=== PATIENT | male | born 2005 | race Caucasian/White ===

== ENCOUNTER 2024-10-22 06:03 | Day surgery (SDC) | payer OTHER, SELFPAY ==
[2024-10-22] VITALS (14 sets, daily range): BP systolic 115–147; BP diastolic 62–75; BMI 31.3; BMI 30.9
--- NOTE | 2024-10-22 03:13 | ED.GENMED ---
History of Present Illness
General
Chief Complaint: Abdominal Pain
Source: patient and family
Exam Limitations: none
Time Seen by Provider: 10/22/24 03:07
Nursing documentation reviewed up to this point in time: agreed with
History of Present Illness
History of Present Illness:
Pleasant 19-year-old male that presents with right upper quadrant abdominal pain. Patient had stomach bug on Sunday with nausea, and vomiting. Symptoms have waxed and waned since then. Tonight he had a normal-richard meal. Shortly thereafter he
developed severe right upper quadrant abdominal pain. Denies fever but does report chills. States that the pain is in the right upper quadrant and radiates to the right shoulder.
Review of Systems
Review of Systems
Allergies reviewed?: Yes
Other source history: family (Father)
All Other Systems: ROS reviewed and negative except as documented in HPI and ROS
Constitutional: Reports no symptoms
EENT: Reports no symptoms
Respiratory: Reports no symptoms
Cardiac: Reports no symptoms
ABD/GI: Reports abdominal pain and nausea
: Reports no symptoms
Musculoskeletal: Reports no symptoms
Skin: Reports no symptoms
Neurological: Reports no symptoms
Endocrine: Reports no symptoms
Hematologic/Lymphatic: Reports no symptoms
Psychiatric: Reports anxiety
Phy Exam
General Physical Exam
General Presentation: moderate distress
General age: appears stated age
General Skin: warm and dry
General Habitus: normal
General Mental: alert
General Hydration: appears well hydrated
ENT Exam
ENT Exam: EOMI, pharynx normal, neck supple and normocephalic
Eye Exam
Eye Exam: PERRL, cornea clear and conjunctiva normal
Cardiovascular Exam
Cardiovascular Exam: regular rate/rhythm, no edema, no murmur and normal peripheral pulses
Pulmonary Exam
Pulmonary Exam: lungs clear, no respiratory distress, no rales, no crackles, no rhonchi, no stridor, no wheezing and no cough
Gastrointestinal Exam
Gastrointestinal Exam: normal bowel sounds, guarding and rebound
Palpation: right upper quadrant: Severe tenderness
Neurological Exam
Neurological Exam: alert, oriented x3, no motor deficits and speech normal
Musculoskeletal Exam
Musculoskeletal Exam: full ROM and no edema
Skin Exam
Skin Exam: normal color, warm/dry, no rash and no petechia
Psychiatric Exam
Psychiatric Exam: normal mood/affect
Course
Orders/Labs/Results
Orders:
Orders
10/22/24 03:07
Urinalysis Reflex To Culture Urgent
US Abdomen Complete/Upper Urgent
Comment:
Reason For Exam: RUQ pain
10/22/24 03:12
0.9% Sodium Chloride 1000 ml [Nss] 1,000 ml IV BOLUS
HYDROmorphone [Dilaudid] 1 mg IV NOW STA
Ondansetron Injectable [Zofran] 4 mg IV NOW STA
10/22/24 03:26
Complete Blood Count/With Diff Urgent
Comprehensive Metabolic Panel Urgent
Lipase Urgent
10/22/24 04:03
Ketorolac [Toradol] 15 mg IV NOW STA
Abnormal Lab Results
10/22/24
03:26
WBC 12.6 H 10^3/uL
(4.8-10.8)
RBC 4.63 L 10^6/uL
(4.70-6.10)
Abs Immat Gran (auto) 0.1 H 10^3/uL
(0-0.05)
Absolute Neuts (auto) 8.8 H 10^3/uL
(1.4-6.5)
Absolute Monos (auto) 0.9 H 10^3/uL
(0.1-0.6)
Lymphocytes % 18.0 L %
(20.5-51.1)
Glucose 131 H mg/dl
(70-99)
10/22/24 03:26
10/22/24 03:26
Vital Signs
Initial and Last Documented VS:
Initial Vital Signs
Pulse Resp BP Pulse Ox
106 26 115/75 98
10/22/24 02:46 10/22/24 02:46 10/22/24 02:46 10/22/24 02:46
Last Documented Vital Signs
Temp Pulse Resp BP Pulse Ox
98.8 F 82 24 129/70 98
10/22/24 04:00 10/22/24 04:00 10/22/24 04:00 10/22/24 04:00 10/22/24 04:00
*Critical Care Note
Total Time (30-74mins, 75-104mins- exclusive of procedures): Not Applicable
ED Attending Note
-
Portions of this chart may have been created with voice recognition software.� Occasional wrong word or��sound alike� substitutions may have occurred due to the inherent limitations of voice recognition software.
Discharge Plan
Departure
Patient Disposition: Admit
Date of Disposition: 10/22/24
Time of Disposition: 05:00
Presentation/result/management discussed w/ accepting MD/DO: Dr Christopher
Condition: Good
Discharge Problem:
Acute cholecystitis
Prescriptions:
No Action
No Current Medications
0
Referrals:
Karon Nobles MD [Family Provider] -
Interventions
Interventions:
*General Assessment Last Done: 10/22/24 02:46
*Neglect/Abuse Screening Last Done: 10/22/24 02:51
ED- Fall Risk Assessment Last Done: 10/22/24 03:39
*ED COVID-19 Vaccine History Last Done: 10/22/24 02:51
NI-Pojjdr-Bwqnvfuwyr Assessment Last Done: 10/22/24 03:39
Discharge Date and Time
Print Language: [place]
[2024-10-22] MEDS: NSS 1000 IV ×3 (03:24→12:55)
[2024-10-22] MEDS: DILAUDID 1 MG IV ×2 (03:24→05:41)
[2024-10-22] MEDS: ZOFRAN 4 MG IV (03:25)
[2024-10-22 03:36] LABS: % Basophils 0.5 % (0-2); % Immature Granulocytes 0.5 % (0-0.5); % Monocytes 7.4 % (1.7-9.3); % Neutrophils 69.6 % (42.2-75.2); Absolute Basophils 0.1 10^3/uL (0-0.2); Absolute Eosinophils 0.5 10^3/uL (0-0.7); Absolute Immature Granulocytes 0.1 10^3/uL (0-0.05); Absolute Lymphocytes 2.3 10^3/uL (1.2-3.4); Absolute Monocytes 0.9 10^3/uL (0.1-0.6); Absolute Neutrophils 8.8 10^3/uL (1.4-6.5); Hematocrit 41.3 % (39.0-52.0); Hemoglobin 14.1 g/dL (13.0-18.0); Mean Corp Hgb Conc. 34.1 g/dL (33.0-37.0); Mean Corpuscular Hgb 30.5 pg (27.0-31.0); Mean Corpuscular Volume 89.2 fL (80.0-94.0); Mean Platelet Volume 9.1 fL (7.4-10.4); Nucleated Red Blood Cells % 0 % (-); Platelet Count 359 10^3/uL (130-400); Red Blood Cell Count 4.63 10^6/uL (4.70-6.10); Red Cell Dist. Width 12.8 % (11.5-14.5); White Blood Cell Count 12.6 10^3/uL (4.8-10.8)
[2024-10-22 03:48] LABS: ALT (SGPT) 42 U/L (0-50); AST (SGOT) 29 U/L (17-59); Alkaline Phosphatase 75 U/L (38-126); Blood Urea Nitrogen 11 mg/dl (9-20); Calcium 9.7 mg/dl (8.4-10.2); Carbon Dioxide 25 mmol/L (22-30); Chloride 102 mmol/L (98-107); Estimated Creatinine Clearance > 125 ml/min; Glucose 131 mg/dl (70-99); Lipase 36 U/L (23-300); Potassium 3.9 mmol/L (3.5-5.1); Sodium 140 mmol/L (135-145); Total Bilirubin 0.4 mg/dl (0.2-1.3); Total Protein 7.7 g/dl (6.3-8.2); eGFR > 60.00
[2024-10-22] MEDS: TORADOL 15 MG IV (04:16)
--- NOTE | 2024-10-22 05:38 | HPS.HSE ---
Addendum entered and electronically signed by Sidney Burns MD 10/22/24 11:03:
I saw and examined the patient.
The Marketing Pr Intern's note was reviewed and I agree with the note.
Comment: Remains tender to ttp in RUQ this am. Difficult night without much sleep 2/2 discomfort. Denies n/v, denies changes to stool/urine, denies f/c. Congenital atrial heart defect noted, he has not had symptoms nor treatment for this. He is
followed by [facility]. Plan for IV abx, OCTOR for lap valentin. Informed consent obtained.
Original Note:
Family Physician
-
Family Physician: Karon Nobles MD
Chief Complaint
-
Abdominal pain
History of Present Illness
Patient is a 19-year-old male with past medical hx of core tria tradium, is followed by Varun, who presents to the emergency department with right upper quadrant abdominal pain. Patient states he had what he thought was a stomach bug on Sunday with
nausea and vomiting. Symptoms have waxed and waned since then. Tonight he last ate around 9 pm and he had a normal-richard meal. Shortly thereafter he developed severe right upper quadrant abdominal pain. Denies fever but does report chills.
States that the pain is in the right upper quadrant and radiates to the right shoulder. Patient denies SOB, palpitations, chest discomfort.
In the emergency department, WBC slightly elevated, 12.6, otherwise unremarkable. US Abdomen preliminary report shows - Cholelithiasis with free fluid, wall thickening, and positive Peguero sign, reflecting acute cholecystitis. Surgical consultation
recommended. Patient received NSS 1 L fluid bolus, Zofran 4 mg x 1, Dilaudid 1 mg IV x 1, Toradol [address] Abdalla, Emergency provider reviewed case with Dr. Christopher who is accepting patient on his service.
Medical History
Past Medical History
Past Medical History: Reports Other (Core Tria Tradium, followed by Varun)
Past Surgical History: Reports None
Social History
Tobacco: Non-smoker
Alcohol: Binge drinker (Sunday nights, college student)
Drug: None
Personal: Single
Living: With Family
Family History
Family History: Not pertinent
Allergies / Home Medications
Allergies reflects when Allergies were last updated in [facility].
Home Medications with original date entered in [facility]
Allergy/Medication List:
Patient Allergies
Allergy/AdvReac Type Severity Reaction Status Date / Time
No Known Allergies Allergy Unverified 10/22/24 02:45
Home Medications
�Medication �Instructions �Recorded
No Meds [No Current Medications] 10/22/24
Review of Systems
-
History Source: Patient
Constitutional: Reports Other (Poor appetite)
EENT: Reports No Symptoms
Respiratory: Reports No Symptoms
Cardiac: Reports No Symptoms
Abdomen/GI: Reports Abdominal Pain (Right upper quadrant) and Nausea
: Reports No Symptoms
Musculoskeletal: Reports No Symptoms
Skin: Reports No Symptoms
Neurological: Reports No Symptoms
Endocrine: Reports No Symptoms
Hematologic/Lymphatic: Reports No Symptoms
Psych: Reports Anxiety
Physical Exam
Vital Signs
Vital Signs
Temp Pulse Resp BP Pulse Ox
98.8 F 82 24 129/70 98
10/22/24 04:00 10/22/24 04:00 10/22/24 04:00 10/22/24 04:00 10/22/24 04:00
Physical Exam
General: Well Nourished, Appears in Distress, Pain (tender to palpation right upper quadrant) and Poor Appetite
HEENT: NormoCephalic, Moist mucous membranes and PERRLA
Respiratory: Clear
Cardiac: Regular Rhythm
GI: Tender (right upper quadrant)
Rectal: Deferred by Provider
Genito-urinary: Deferred by me
Musculoskeletal: No Edema
Skin: Warm and Dry
Neuro: Awake, Alert, Oriented and No Motor Deficits
Psych: Calm
Laboratory Results
-
10/22/24 03:26
10/22/24 03:
Laboratory Results
Total Bilirubin 0.4 mg/dl (0.2-1.3) 10/22/24 03:
AST 29 U/L (17-59) 10/22/24:
ALT 42 U/L (0-50) 10/22/24 03:26
Alkaline Phosphatase 75 U/L (38-126) 10/22/24:
Lipase 36 U/L (23-300) 10/22/24:26
Data Reviewed
-
Ultrasound: Report Reviewed by me
Lab Data: Labs Reviewed by me
Impression/Plan
-
IMPRESSION:
Patient is a 19-year-old male with past medical hx of core tria tradium, is followed by Varun, who presents to the emergency department with right upper quadrant abdominal pain.
PLAN:
Acute Cholecystitis
-Admit to med/surg to General Surgery, Dr. Christopher
-NPO, IV fluids NSS at 100 mls/hr
-Pain medication: Dilaudid 0.5 mg IV Q3H moderate pain, Dilaudid 1 mg IV Q3H severe pain
-Antiemetic: Zofran 4 mg IV Q6H
-Antibiotics as per Surgery
Code status: Full code
DVT Prophylaxis: SCD/Lovenox post op
[2024-10-22] MEDS: DILAUDID 0.5 MG IV ×2 (09:40→19:40)
--- NOTE | 2024-10-22 11:04 | CM ---
Patient seen bedside, sleeping. Mom in room.
IA completed.
Patient lives with parents in a 2 story home.
Patient independent prior to admission.
Patient drives and is a student.
Mom aware of CM availability should needs arise.
Observation form completed.
PCP; Dr Treviño
Pharmacy: [facility]
Plan: surgery and home no needs.
--- NOTE | 2024-10-22 15:20 | W.IMMPOSTOP ---
Surgical Immed Post Op Note
-
Primary Surgeon: Grant
Assisting: Delfina DE LA GARZA
Pre-op Diagnosis: Acute calculous cholecystitis
Post-op Diagnosis: Same
Procedure Performed: Robot assisted laparoscopic cholecystectomy
Anesthesia Type: GETA
Specimen / Cultures: Gallbladder
Estimated Blood Loss: 40cc
Complications: None immediate
Operative Findings: Distended inflamed gallbladder with thin omental adhesions, thickened wall, wall edema, with oozing inflammatory tissue about the infundibulum
[2024-10-22] MEDS: ZOSYN 50 IV ×2 (16:44→22:13)
[2024-10-22] MEDS: LOVENOX 40 MG SC (16:44)
--- NOTE | 2024-10-22 16:51 | PTCARENOTE ---
Received Patient from PACU at 1640. Patient AAOx3, drowsy, no c/o pain at present, tolerating clear liquids. Father at bedside, patient ordred dinner.
--- NOTE | 2024-10-22 18:38 | PTCARENOTE ---
Patient ambulated to bathroom with supversion, voided without difficulty. Patient tolerated regular diet, patient has no c/o pain-just tenderness. Father at bedside.
[2024-10-23] MEDS: NSS 1000 IV (03:22)
[2024-10-23 03:28] VITALS: BP 123/64
[2024-10-23] MEDS: ZOSYN 50 IV ×2 (04:36→09:03)
[2024-10-23 07:58] VITALS: BP 135/63
--- NOTE | 2024-10-23 09:41 | W.PN.SURGUPD ---
Surgical Update
Surgical Update
Patient seen and examined. Father at bedside.
Doing well postoperatively. Moderate incisional pain but adequately controlled.
Ate breakfast without nausea or vomiting.
Voided postoperatively.
AFVSS
NAD AAOx3
ABD: Soft, nondistended, mild tenderness to palpation at incision sites.
Incisions with glue dressings. Minimal ecchymosis. No erythema, no drainage.
A/P: POD #1 status post RAL cholecystectomy
Stable for discharge home
Prescription sent
Discharge instructions reviewed
--- NOTE | 2024-10-23 09:43 | W.DS.TRANS ---
DC Summary - Buyers' Agent
-
Discharge Instructions:
Discharge Diagnosis/Procedures Acute calculous cholecystitis; Robotic assisted
laparoscopic cholecystectomy
Diet As tolerated,Low Fat
Additional Diets Smaller meals initially after surgery as
abdominal bloating and distention are common for
the first few days
Activity No strenuous activity
Additional Activity No lifting over 20 pounds for 3 to 4 weeks.
Walking, standing, stairs and routine daily
light activities are all okay as tolerated
Driving Restrictions No driving 2 to 3 days or if using narcotics
Bathing Restrictions OK to Shower
Wound Care Allow skin glue to flake off on its own
Instructions: Cholecystectomy - Discharge instructions
Stand-Alone Forms:
Changes to Home Medications: No
Discharge Medications:
DC Medications w/original date entered in [facility]
amoxicillin 875 mg-potassium clavulanate 125 mg tablet 1 tab PO Q12 antibiotic #14 tabs 10/22/24
oxycodone 5 mg tablet 5 - 10 mg (1 - 2 x 5 mg) PO Q4HPRN PRN moderate to severe pain #20 tabs 10/22/24
acetaminophen 500 mg tablet (Tylenol Extra Strength) 1,000 mg (2 x 500 mg) PO Q6HPRN PRN mild pain #1 tab 10/23/24
ibuprofen 200 mg tablet 400 - 600 mg (2 - 3 x 200 mg) PO Q6HPRN PRN moderate pain #1 tab 10/23/24
polyethylene glycol 3350 17 gram/dose oral powder (Miralax) 4 g PO DAILY PRN Constipation #119 grams 10/23/24
Home Medication Changes
Pending Results: No
--- NOTE | 2024-10-23 09:44 | CM ---
Chart reviewed and plan is to home no needs.
Plan; Discharge to home today.
--- NOTE | 2024-10-30 11:41 | OR.RPT ---
Operative Report
Operative Report
Primary Surgeon: Grant
Assisting: Delfina DE LA GARZA
Pre-op Diagnosis: Acute calculous cholecystitis
Post-op Diagnosis: Same
Procedure Performed: Robot assisted laparoscopic cholecystectomy
Anesthesia Type: GETA
Specimen / Cultures: Gallbladder
Estimated Blood Loss: 40cc
Complications: None immediate
Operative Findings: Distended inflamed gallbladder with thin omental adhesions, thickened wall, wall edema, with oozing inflammatory tissue about the infundibulum
Date of Surgery:� 10/22/24
Indications: This 21F developed biliary colic. Work-up showed gallstones, unremarkable liver enzymes and no ductal dilation. Laparoscopic cholecystectomy with robotic assist was elected.
Description of procedure: The patient was placed on the operating table in the supine position. General anesthesia was induced. A time-out was completed verifying correct patient, procedure, site, positioning, and special equipment prior to
beginning this procedure. An orogastric tube was placed. The abdomen was prepped and draped in the usual sterile fashion. A stab incision was made in left upper quadrant and the Veress needle was inserted. Proper position was confirmed by aspiration
and saline meniscus test. The abdomen was insufflated with carbon dioxide to a pressure of 12mmHg. The patient tolerated insufflation well.
A 8mm trocar was then inserted above the umbilicus. The laparoscope was inserted and the abdomen inspected. No injuries from initial trocar placement or Veress needle insertion were noted. Additional 8mm trocars were then inserted in the following
locations: two in the right lower quadrant and to the left of the umbilicus and just above. The abdomen was inspected and no abnormalities were found. The table was placed in the reverse Trendelenburg position with the right side up. The gallbladder
was distended and inflamed with thin omental adhesions. The dome of the gallbladder was grasped with an atraumatic grasper and retracted over the dome of the liver. Thin omental adhesions were carefully teased down with gently blunt sweeps and
judicious hook cautery. The infundibulum was then grasped with an atraumatic grasper and retracted toward the right lower quadrant. This maneuver exposed Calot�s triangle. The peritoneum overlying the gallbladder infundibulum was then incised and
the cystic duct and cystic artery identified and circumferentially dissected so that a clear view of the liver was achieved through a window between the cystic duct an cystic artery. At this time, the only two structures going into the gallbladder
were the cystic artery and cystic duct. The common dict was identified with ICG and protected.
The cystic duct was then doubly clipped and divided. The cystic artery was controlled with bipolar and divided. The gallbladder was then dissected from its peritoneal attachments by electrocautery. The posterior plane was fibrotic. The gallbladder
was removed using an endoscopic retrieval bag placed through the umbilical port. The gallbladder was passed off the table as a specimen. The gallbladder fossa was closely inspected. There was no evidence of bleeding from the gallbladder fossa or
cystic artery or leakage of the bile from the cystic duct stump. The umbilical trocar site was closed at the fascial level with 2-0 PDS. Secondary trocars were removed under direct vision and noted to be hemostatic. The abdomen was allowed to
collapse. The skin was closed with subcuticular sutures of 4-0 monocryl and topical skin adhesive. The orogastric tube was removed.
The patient tolerated the procedure well and was taken to the postanesthesia care unit in stable condition.
== END 2024-10-23 10:14 | disposition home or self-care (01) ==
LOC: SDS 06:03
PROVIDERS: ATTENDING PHYSICIAN Surgery; EMERGENCY PHYSICIAN Student in an Organized Health Care Education/Training Program; FAMILY PHYSICIAN Internal Medicine
DX: K80.00 Calculus of gallbladder with acute cholecystitis without obstruction (principal); K31.A0 Gastric intestinal metaplasia, unspecified; K66.0 Peritoneal adhesions (postprocedural) (postinfection)
CPT/HCPCS: 47562; 88304; 76700; 80053; 83690; 85025; 96361; 96374; 96375; 96376; 99284